=== PATIENT | male | born 1980 | race Caucasian/White ===

== ENCOUNTER 2017-09-08 04:21 | Emergency (ER) | payer MEDICAID ==
[2017-09-08] MEDS ORDERED: LORazepam 1 MG Tab PO ONE (04:58)
--- NOTE | 2017-09-08 05:17 | EDM.PDOC ---
ED HPI GENERAL MEDICAL PROBLEM - General Chief Complaint: Chest Pain Stated Complaint: CHEST PAINS Time Seen by Provider: 09/08/17 05:01 Source of Information: Reports: Patient History Limitations: Reports: No Limitations - History of Present Illness INITIAL COMMENTS - FREE TEXT/NARRATIVE: 37 yo male presents with tachycardia after taking multiple doses of Ritalin spread out over most of the day yesterday with the single largest dose being about 15 tablets about 11 pm last night. Denies taking them to harm himself. He says he did it to try and feel better. Has been depressed for several mos. Is on Effexor which is either not helping or not helping sufficiently. Bought the Ritalin off the street. Vomited once just before getting here, is not nauseated now. Onset Date: 09/07/17 Duration: Hour(s):, Improving Location: Reports: Chest Quality: Reports: Other (no pain) Severity: Mild Improves with: Reports: Other (time) Worsens with: Reports: Other (Ritalin ) Context: Reports: Other (Took potentially toxic dose to try and feel good.) Associated Symptoms: Reports: Nausea/Vomiting (now resolved.) Treatments MANAGER PAID: Reports: Other (see below) (none) chest Pain Score (Numeric/FACES): 4 - Related Data Allergies Allergy/AdvReac Type Severity Reaction Status Date / Time No Known Allergies Allergy Verified 06/08/14 08:22 Home Meds: Home Meds Metoprolol Tartrate [Lopressor] 25 mg PO BID 07/06/15 [History] Disulfiram [Disulfiram] 1 tab PO DAILY 09/08/17 [History] Venlafaxine [Effexor] 225 mg PO DAILY 09/08/17 [History] traZODone 50 mg PO BEDTIME PRN 09/08/17 [History] Past Medical History - Past Health History Medical/Surgical History: Denies Medical/Surgical History Other Cardiovascular History: chronic PVC 's Psychiatric History: Reports: ADHD, Anxiety, Depression, Psych Hospitalization(s ) Social & Family History - Tobacco Use Smoking Status *Q: Current Every Day Smoker Years of Tobacco use: 22 Packs/Tins Daily: 1 Used Tobacco, but Quit: No Second Hand Smoke Exposure: No - Caffeine Use Caffeine Use: Reports: Energy Drinks - Alcohol Use Days Per Week of Alcohol Use: 2 Number of Drinks Per Day: 2 Total Drinks Per Week: 4 - Recreational Drug Use Recreational Drug Use: No Recreational Drug Type: Reports: Cocaine, Marijuana/Hashish, Ritalin Recreational Drug Use Frequency: Not Used In Over 1 Month ED ROS GENERAL - Review of Systems Review Of Systems: See Below Constitutional: Reports: No Symptoms HEENT: Reports: No Symptoms Respiratory: Reports: No Symptoms Cardiovascular: Reports: Palpitations (now less) Endocrine: Reports: No Symptoms GI/Abdominal: Reports: Nausea, Vomiting (no resolved) : Reports: No Symptoms Musculoskeletal: Reports: No Symptoms Skin: Reports: No Symptoms Neurological: Reports: No Symptoms ED EXAM, GENERAL - Physical Exam Exam: See Below Exam Limited By: No Limitations General Appearance: Alert, WD/WN, No Apparent Distress Eye Exam: Bilateral Eye: Normal Inspection Ears: Normal External Exam, Normal Canal, Hearing Grossly Normal Ear Exam: Bilateral Ear: Auricle Normal, Canal Normal Nose: Normal Inspection, Normal Mucosa, No Blood Throat/Mouth: Normal Inspection, Normal Lips, Normal Teeth, Normal Oropharynx, Normal Voice, No Airway Compromise Head: Atraumatic, Normocephalic Neck: Normal Inspection, Supple Respiratory/Chest: No Respiratory Distress, Lungs Clear, Normal Breath Sounds, No Accessory Muscle Use Cardiovascular: Regular Rate, Rhythm, Tachycardia GI/Abdominal: Normal Bowel Sounds, Soft, Non-Tender, No Distention (Male) Exam: Normal Inspection Back Exam: Normal Inspection. No: CVA Tenderness (R), CVA Tenderness (L) Extremities: Normal Inspection, Normal Range of Motion, Non-Tender, No Pedal Edema Neurological: Alert, Oriented, CN II-XII Intact, Normal Cognition, No Motor/ Sensory Deficits Psychiatric: Normal Affect, Normal Mood Skin Exam: Warm, Dry, Intact, Normal Color, No Rash Lymphatic: No Adenopathy Course - Vital Signs Last Recorded V/S: Last Vital Signs Temp 36.3 C 09/08/17 04:28 Pulse 105 H 09/08/17 05:03 Resp 16 09/08/17 05:09 BP 143/88 H 09/08/17 05:09 Pulse Ox 97 09/08/17 05:09 - Orders/Labs/Meds Orders: Active Orders 24 hr Category Date Time Status EKG Documentation Completion [RC] ASDIRECTED Care 09/08/17 04:59 Active EKG 12 Lead [EK] Routine Ther 09/08/17 04:58 Ordered Meds: Medications Discontinued Medications Generic Name Dose Route Start Last Admin Trade Name Fer PRN Reason Stop Dose Admin Lorazepam 1 mg 09/08/17 04:58 09/08/17 05:03 Ativan PO 09/08/17 04:59 1 mg ONETIME ONE Administration Departure - Departure Time of Disposition: 06:00 Disposition: Home, Self-Care 01 Condition: Fair Clinical Impression: Intentional amphetamine overdose Qualifiers: Encounter type: initial encounter Qualified Code(s): T43.622A - Poisoning by amphetamines, intentional self-harm, initial encounter Referrals: PCP,None [Primary Care Provider] - Forms: ED Department Discharge - My Orders Last 24 Hours: My Active Orders 09/08/17 04:58 EKG 12 Lead [EK] Routine 09/08/17 04:59 EKG Documentation Completion [RC] ASDIRECTED - Assessment/Plan Last 24 Hours: My Active Orders 09/08/17 04:58 EKG 12 Lead [EK] Routine 09/08/17 04:59 EKG Documentation Completion [RC] ASDIRECTED
[2017-09-08 06:02] VITALS: BP 154/91
== END 2017-09-08 06:02 | disposition home or self-care (01) ==
LOC: JP.ED 04:21
DX: T43.622A Poisoning by amphetamines, intentional self-harm, initial encounter (principal); F32.9 Major depressive disorder, single episode, unspecified; F17.210 Nicotine dependence, cigarettes, uncomplicated; Z79.899 Other long term (current) drug therapy
CPT/HCPCS: 93005; 99285; A9270; 93010; 99284

== ENCOUNTER 2022-08-28 22:59 | Emergency (ER) | payer MEDICAID ==
[2022-08-28 23:12] VITALS: BP 140/87; PULSE 129
[2022-08-29 00:02] LABS: ESTIMATED GFR 77 mL/min (>60)
== END 2022-08-29 01:20 | disposition home or self-care (01) ==
LOC: JP.ED 22:59
DX: R10.31 Right lower quadrant pain (principal); Z72.0 Tobacco use
CPT/HCPCS: 36415; 74176; 80053; 81001; 83605; 85025; 99284